=== PATIENT | male | born 1995 | race Caucasian/White ===

== ENCOUNTER 2017-03-17 11:48 | Emergency (ER) | payer OTHER | END 2017-03-17 15:38 | disposition home or self-care (01) | LOC: M ED 11:48 | DX: S63.512A Sprain of carpal joint of left wrist, initial encounter (principal); W19.XXXA Unspecified fall, initial encounter; Y92.828 Other wilderness area as the place of occurrence of the external cause; Y93.23 Activity, snow (alpine) (downhill) skiing, snowboarding, sledding, tobogganing and snow tubing; M54.9 Dorsalgia, unspecified | CPT/HCPCS: 73110 ==